=== PATIENT | male | born 1940 | race African-American/Black ===

== ENCOUNTER 2016-07-20 16:06 | Emergency (ER) | payer MEDICARE, OTHER ==
[~2016-07-20] VITALS: Ht 182.9 cm; Wt 76.2 kg
[~2016-07-20 16:06] MED LIST: AMLODIPINE BESY10 MG ORAL; ASPIR 8181 MG ORAL; ATORVASTATIN CA40 MG ORAL; HYDRALAZINE HC100 MG ORAL; KEFLEX500 MG ORAL; LEVAQUIN500 MG ORAL; LYRICA25 MG ORAL; MIRTAZAPINE15 M3 ORAL; NEPHROVITE1 TAB ORAL; NORCO 5-325 TA1 EACH ORAL; NORVASC10 MG ORAL; RENAGEL400 MG ORAL; RENVELA800 MG ORAL; rena vite PO
[2016-07-20 16:23] VITALS: BP 152/81
[2016-07-20] MEDS ORDERED: Tylenol #3 tab (300mg/30mg) ORAL ONE (16:30)
[2016-07-20] MEDS ORDERED: ACETAMINOPHEN-1 EAC1 ORAL (17:21)
[2016-07-20] MEDS ORDERED: IBUPROFEN600 MG ORAL (17:21)
[2016-07-20 17:26] VITALS: BP 146/75
--- NOTE | 2016-07-20 19:20 | Emergency Room Report ---
History of Present Illness General Chief Complaint: Upper Extremity Injury Present Illness HPI The patient is a 76-year-old male presenting for right chest pain after he slipped in the bathroom and struck the sink with his chest. The pain is described as an 8/10 dull ache to this area and does not radiate. Pain is worse with touch and deep inspiration. The patient denies any prior injury to this area. The patient has not tried any medications yet. The patient denies other symptoms such as shortness of breath, cough, hemoptysis Allergies: Coded Allergies: No Known Allergies (Verified Allergy, Unknown, 01/24/10) Patient History Past Medical History: see triage record Pertinent Family History: none Reviewed Nursing Documentation: PMH: Agreed, PSxH: Agreed Nursing Documentation-PMH Hx Cardiac Problems: Yes Hx Hypertension: Yes Hx Diabetes: Yes - type 2, Hx Cancer: No Hx Gastrointestinal Problems: Yes Hx Dialysis: Yes - wednesday, , wednesday, ESRD Hx Neurological Problems: No Hx Cerebrovascular Accident: No Hx Seizures: No Review of Systems All Other Systems: negative except mentioned in HPI Physical Exam Vital Signs Date Time Temp Pulse Resp B/P Pulse Ox O2 Delivery O2 Flow Rate FiO2 07/20/16 16:16 97.9 64 20 152/81 100 Room Air Sp02 EP Interpretation: reviewed, normal General Appearance: no apparent distress, alert, GCS 15, non-toxic Head: normocephalic, atraumatic Eyes: bilateral eye PERRL, bilateral eye normal inspection ENT: hearing grossly normal, normal pharynx, no angioedema, normal voice Neck: full range of motion, supple/symm/no masses Respiratory: lungs clear, normal breath sounds, no respiratory distress, no accessory muscle use, no wheezing, speaking full sentences, chest symmetrical Cardiovascular #1: regular rate, rhythm, no edema Musculoskeletal: back normal, gait/station normal, normal range of motion, tender - TTP over the R mid lateral chest Neurologic: alert, oriented x3, responsive, motor strength/tone normal, sensory intact, normal gait, speech normal Psychiatric: judgement/insight normal, memory normal, mood/affect normal, no suicidal/homicidal ideation Skin: normal color, no rash, warm/dry, well hydrated Lymphatic: no adenopathy Medical Decision Making PA Attestation Dr. Mak is my supervising physician. Patient management was discussed with my supervising physician Diagnostic Impression: Primary Impression: Contusion of rib on right side ER Course The patient is a 76-year-old male presenting for right chest pain after falling onto it Ddx considered include but not limited to sprain/strain, fracture, contusion PE: No tachypnea or tachycardia. NAD R chest: TTP over the thoracic ribs mid-axillary line. No deformity. No ecchymosis. No resp distress. Chest is symmetrical. RRR. Lungs CTA bilat Chest CT: No bony deformity. No pneumothorax. There is an effusion and 6mm nodule of the RLL. The patient is informed of these findings and will FU with PMD.The pt will call back in order to obtain the formal radiology report. Pt given prescription for tylenol #3. CT/MRI/US Diagnostic Results CT/MRI/US Diagnostic Results : Imaging Test Ordered: CT chest Impression No bony deformity. No pneumothorax. There is an effusion and 6mm nodule of the RLL. Last Vital Signs Date Time Temp Pulse Resp B/P Pulse Ox O2 Delivery O2 Flow Rate FiO2 07/20/16 17:27 97.8 07/20/16 17:26 61 20 146/75 100 Room Air Status: improved Disposition: HOME, SELF-CARE Condition: Improved Scripts Ibuprofen* (MOTRIN*) 600 Mg Tablet 600 MG ORAL Q8H Y for For Pain, #30 TAB 0 Refills Prov: GRACIE TAYLOR 07/20/16 Acetaminophen With Codeine (T#3) (TYLENOL #3 TAB*) Y Tab 1 TAB ORAL Q6HR Y for For Pain, #10 TAB Prov: GRACIE TAYLOR 07/20/16 Referrals: JUNIOR ECHOLS (PCP) Patient Instructions: Rib Contusion Additional Instructions: I discussed my findings with the patient. All questions and concerns have been answered. Treatment and medication compliance have been addressed. I advised the patient that they need to follow up with PMD in 3-5 days. Return to ED if symptoms worsen, new symptoms arise, or if needed for any reason. Patient verbalized understanding of discharge instructions. The patient was informed that there was an incidental finding of a 6mm nodule of the right lower lung. The patient will call back for final report and needs to see his primary physician. GRACIE TAYLOR Jul 20, 2016 19:20
--- NOTE | 2016-07-21 15:23 | Diagnostic Imaging Report ---
Indications: Right-sided chest trauma and pain Technique: Continuous helical CT imaging of the thorax and upper abdomen was performed with automatic exposure control on a Siemens sensation [address] scanner. Axial images were reconstructed at 5 mm slice thickness and interval. Coronal images were reconstructed at 5 mm slice thickness. No IV contrast was administered secondary to requesting physician's order, despite no contraindications listed. CTDI volume(s): 17 mGy Total DLP: 624 mGy-cm Findings: Comparison: None 8mm mildly irregular soft tissue nodule superior segment right lower lobe (5/27). I millimeters calcified nodule anterior segment left upper lobe (5-11). Finally noncalcified nodule anterior segment left upper lobe (5-12). 3 mm nodule not obviously calcified anterior segment left upper lobe (5-23). Circumscribed cystic lesion is scattered throughout both lungs, most prominent in the bases where surrounded by parenchymal consolidation and volume loss. No obvious pleural abnormality. Heart enlarged. Pericardial effusion up to 15 mm diameter. Prominent arterial mural calcifications including coronary artery involvement. Vascular patency indeterminate. Thoracic aorta nonaneurysmal. No obvious mediastinal or hilar enlarged lymph nodes, other abnormal mass or fluid collection. 2 cm calcified nodule adjacent to posterior margin of left thyroid lobe. Stent in left axillary vein, incompletely imaged. Mild diffuse chest wall soft tissue edema. No fracture identified. Disc marginal osteophytes scattered throughout thoracic spine. 2.5 cm circumscribed low-attenuation mass right adrenal gland. Bilateral kidneys are atrophic with multiple cortical circumscribed low-attenuation masses. 2 small high attenuation masses emanating from left renal cortex. Multiple small circumscribed low attenuation foci in spleen not further characterizable. IMPRESSION: No evidence of acute injury Superior segment right lower lobe lung nodule--inflammatory versus neoplastic. Followup thoracic CT scan recommended in 6 months if patient at low risk for neoplasm, 3 months if high risk. Left upper lobe nodules likely of granulomatous. Pulmonary bibasal subsegmental atelectasis versus scarring Scattered bilateral emphysematous/bullous changes Cardiomegaly Pericardial effusion, nonspecific Arteriosclerosis Calcified nodule adjacent to left thyroid lobe most likely thyroid in origin Left axillary vein stent most likely relates to dialysis access, patency indeterminate Mild anasarca Right adrenal mass most likely adenoma. Other etiologies not excludable. MRI recommended for further evaluation. Bilateral renal cortical atrophy and multiple cortical masses most likely cysts, high attenuation lesions in left kidney most likely proteinaceous cysts.. One or more solid masses/neoplasm not excludable ultrasound correlation recommended. Degenerative spondylosis. This correlates with Dr. Hill's preliminary report.
== END 2016-07-20 17:32 | disposition home or self-care (01) ==
LOC: EMR 17:21
DX: S20.211A Contusion of right front wall of thorax, initial encounter (principal); I12.0 Hypertensive chronic kidney disease with stage 5 chronic kidney disease or end stage renal disease; E11.22 Type 2 diabetes mellitus with diabetic chronic kidney disease; N18.6 End stage renal disease; Z99.2 Dependence on renal dialysis; R91.1 Solitary pulmonary nodule; I51.7 Cardiomegaly; I31.3 Pericardial effusion (noninflammatory); I70.90 Unspecified atherosclerosis; E04.1 Nontoxic single thyroid nodule; R60.1 Generalized edema; M47.9 Spondylosis, unspecified; W01.0XXA Fall on same level from slipping, tripping and stumbling without subsequent striking against object, initial encounter; Y93.9 Activity, unspecified; Y92.002 Bathroom of unspecified non-institutional (private) residence as the place of occurrence of the external cause
CPT/HCPCS: 71250; 99284

== ENCOUNTER 2019-01-18 06:54 | Emergency (ER) | payer MEDICARE, OTHER ==
[~2019-01-18] VITALS: Ht 182.9 cm; Wt 59.0 kg
[~2019-01-18 06:54] MED LIST changes: +ACETAMINOPHEN-1 EAC1 ORAL; +IBUPROFEN600 MG ORAL
--- NOTE | 2019-01-18 07:06 | NUR ---
ED Nurse Note: Patient walked into ED from home with his brother, c/o itchiness on and red bumps on bilateral arms for 1 week. patient has HD shunt on the left upper arm. patient reports his HD schedule is tthss. patient is alert awake x4 ambulatory steady gait, breathing unlabored and even, patient placed in a hospital gown.
[2019-01-18] MEDS ORDERED: DIPHENHYDRAMINE25 M1 ORAL (07:34)
[2019-01-18] MEDS ORDERED: CEPHALEXIN500 MG ORAL (07:34)
[2019-01-18 07:43] VITALS: BP_SYST 148; BP_SYST 152; BP_DIAS 81; BP_DIAS 82
--- NOTE | 2019-01-18 07:44 | NUR ---
ER DISCHARGE NOTE: Patient is cleared to be discharged per ERMD DR SUÁREZ, pt is aox4, on room air, with stable vital signs. pt was given dc and prescription instructions, pt was able to verbalize understanding, pt id band removed without complications. pt is able to ambulate with steady gait. pt took all belongings.
--- NOTE | 2019-01-18 08:18 | Emergency Room Report ---
History of Present Illness General Chief Complaint: Skin Rash/Abscess Source: Patient Present Illness HPI 78 yo M presents to ED c/o rash. noted rash to arms initially and is now on his back. started 2 weeks ago. itchy. denies pain. states that his PMD prescribed him some cream but states it didn't help. denies fevers or chills. denies sick contacts. h/o ESRD on dialysis wednesday. states he is compliant with his dialysis. no other aggravating or relieving factors. denies any other associated symptoms. Allergies: Coded Allergies: No Known Allergies (Verified Allergy, Unknown, 01/24/10) Patient History Past Medical History: DM, HTN, renal disease, dialysis Pertinent Family History: none Social History: Denies: smoking, alcohol use, drug use Immunizations: UTD Reviewed Nursing Documentation: PMH: Agreed; PSxH: Agreed Nursing Documentation-PMH Past Medical History: No History, Except For Hx Cardiac Problems: Yes Hx Hypertension: Yes Hx Diabetes: Yes - type 2, Hx Cancer: No Hx Gastrointestinal Problems: Yes Hx Dialysis: Yes - wednesday, , wednesday, ESRD Hx Neurological Problems: No Hx Cerebrovascular Accident: No Hx Seizures: No Review of Systems All Other Systems: negative except mentioned in HPI Physical Exam Vital Signs Date Time Temp Pulse Resp B/P (MAP) Pulse Ox O2 Delivery O2 Flow Rate FiO2 01/18/19 07:00 98.1 70 14 152/81 (104) 96 Room Air Sp02 EP Interpretation: reviewed, normal General Appearance: no apparent distress, alert, GCS 15, non-toxic, thin Head: normocephalic, atraumatic Eyes: bilateral eye normal inspection, bilateral eye PERRL ENT: normal ENT inspection Neck: normal inspection Respiratory: chest non-tender, lungs clear, normal breath sounds, speaking full sentences Cardiovascular #1: regular rate, rhythm, no edema Gastrointestinal: normal bowel sounds, non tender, soft, non-distended, no guarding, no rebound Rectal: deferred Genitourinary: no CVA tenderness Musculoskeletal: normal inspection Neurologic: alert, oriented x3, responsive, motor strength/tone normal, sensory intact, speech normal Psychiatric: normal inspection Skin: other - erythematous macules on back. non erythematous base. Lymphatic: normal inspection Medical Decision Making Diagnostic Impression: Primary Impression: Rash and other nonspecific skin eruption Additional Impression: ESRD (end stage renal disease) ER Course Hospital Course 78 yo M presents to ED c/o rash Differential diagnoses include: Cellulitis, dermatitis, insect bite, abscess Clinical course Patient placed on stretcher. After initial history, physical exam reveals an elderly male in no acute distress. On exam there are multiple erythematous macules on the upper back. nonerythematous base Patient showed me his prescription for triamcinolone. I explained that we will treat for possible insect bites. I will prescribe Benadryl and Keflex. Will provide renal dosing for Keflex as patient is on dialysis. Safe for discharge close outpatient follow-up. States he has a PMD Diagnosis - rash, ESRD stable and discharged to home with prescription for keflex, benedryl. Instructed to followup with PMD. Instructed return to ED if symptoms recur or worsen Last Vital Signs Date Time Temp Pulse Resp B/P (MAP) Pulse Ox O2 Delivery O2 Flow Rate FiO2 01/18/19 07:43 98.1 81 14 148/82 96 Room Air Status: improved Disposition: HOME, SELF-CARE Condition: Stable Scripts Cephalexin* (KEFLEX*) 500 Mg Capsule 500 MG ORAL DAILY for 7 Days, CAP Prov: Alex Fermin MD 01/18/19 Diphenhydramine Hcl* (DIPHENHYDRAMINE HCL*) 25 Mg Capsule 25 MG ORAL Q6H PRN for Itching, #30 CAP 0 Refills Prov: Alex Fermin MD 01/18/19 Referrals: Catarina Kirby MD (PCP) Patient Instructions: Alex Jacques MD Jan 18, 2019 08:18
== END 2019-01-18 07:43 | disposition home or self-care (01) ==
LOC: EMR 07:25
DX: R21 Rash and other nonspecific skin eruption (principal); E11.22 Type 2 diabetes mellitus with diabetic chronic kidney disease; I12.0 Hypertensive chronic kidney disease with stage 5 chronic kidney disease or end stage renal disease; N18.6 End stage renal disease; Z99.2 Dependence on renal dialysis
CPT/HCPCS: 99282

== ENCOUNTER → 2019-05-01 | Emergency (ER) | payer MEDICARE, OTHER ==
[~2019-05-01] VITALS: Ht 182.9 cm; Wt 71.2 kg
[~2019-05-01] MED LIST changes: +CEPHALEXIN500 MG ORAL; +DIPHENHYDRAMINE25 M1 ORAL; +Morphine Sulfate 4mg/ml Inj (IV USE ONLY) IVP ONE; +Morphine Sulfate 4mg/ml Inj (IV USE ONLY) ONE; +Omnipaque-300 100ml vial INJ PRN
--- NOTE | 2019-05-01 14:50 | NUR ---
ED Nurse Note: Patient walked into ED from home with a cane c/o right lower abdominal pain that has been getting worse for 3 months. patient is alert awake x4 ambulatory with cane, breathing unlabored and even, speaking in full sentences, patient on a hospital gown and on a campus monitor. brother at bedside.
[2019-05-01 15:28] VITALS: BP 129/82
[2019-05-01 15:40] LABS: HEMATOCRIT 33.7 % (42.0-52.0); HEMOGLOBIN 10.6 G/DL (14.2-18.0); MEAN CORPUSCULAR VOLUME 94 FL (80-99); PLATELET COUNT 92 K/UL (150-450); RED BLOOD COUNT 3.59 M/UL (4.70-6.10); RED CELL DISTRIBUTION WIDTH 13.3 % (11.6-14.8); WHITE BLOOD COUNT 5.1 K/UL (4.8-10.8)
[2019-05-01 15:57] LABS: ANION GAP 9 mmol/L (5-15); BLOOD UREA NITROGEN 44 mg/dL (7-18); CALCIUM 9.1 MG/DL (8.5-10.1); CARBON DIOXIDE 25 MMOL/L (21-32); CHLORIDE 106 MMOL/L (98-107); CREATININE 8.1 MG/DL (0.55-1.30); POTASSIUM 4.9 MMOL/L (3.5-5.1); SODIUM 140 MMOL/L (136-145)
[2019-05-01 16:02] LABS: ALANINE AMINOTRANSFERASE 7 U/L (12-78); ALBUMIN 2.9 G/DL (3.4-5.0); ALBUMIN/GLOBULIN RATIO 0.9 (1.0-2.7); ALKALINE PHOSPHATASE 71 U/L (46-116); ASPARTATE AMINO TRANSFERASE 15 U/L (15-37); BILIRUBIN,TOTAL 0.3 MG/DL (0.2-1.0)
--- NOTE | 2019-05-01 17:11 | NUR ---
ED Nurse Note: patient came back from CT scan in stable condition.
[2019-05-01 18:30] VITALS: BP 127/92
[2019-05-01 18:45] VITALS: BP 127/92
--- NOTE | 2019-05-01 18:45 | NUR ---
ER DISCHARGE NOTE: Patient is cleared to be discharged per ERMD DR SUÁREZ, pt is aox4, on room air, with stable vital signs. pt was given dc and prescription instructions, pt was able to verbalize understanding, pt id band and iv site removed without complications. pt is able to ambulate with steady gait. pt took all belongings.
--- NOTE | 2019-05-01 22:51 | Emergency Room Report ---
History of Present Illness General Chief Complaint: Abdominal Pain Source: Patient Present Illness HPI 79-year-old male presents ED for evaluation. Complaining of abdominal pain. Has been having pain for the last 3 months but worse in the last few days. Notes pain to the left side of his abdomen. Also notes swelling there. Pain is a 7 out of 10, dull, nonradiating. Denies nausea or vomiting. Denies chest pain. History of end-stage renal disease. Gets dialysis Wednesday. No other aggravating relieving factors. Denies any other associated symptoms Allergies: Coded Allergies: No Known Allergies (Verified Allergy, Unknown, 01/24/10) Patient History Past Medical History: DM, HTN, renal disease, dialysis Past Surgical History: other - hernia Pertinent Family History: none Social History: Denies: smoking, alcohol use, drug use Immunizations: UTD Reviewed Nursing Documentation: PMH: Agreed; PSxH: Agreed Nursing Documentation-PMH Hx Cardiac Problems: Yes - HYPERLIPIDEMIA Hx Hypertension: Yes Hx Diabetes: Yes - type 2, Hx Cancer: No Hx Gastrointestinal Problems: Yes Hx Dialysis: Yes - wednesday, , wednesday, ESRD Hx Neurological Problems: No Hx Cerebrovascular Accident: No Hx Seizures: No Review of Systems All Other Systems: negative except mentioned in HPI Physical Exam Vital Signs Date Time Temp Pulse Resp B/P (MAP) Pulse Ox O2 Delivery O2 Flow Rate FiO2 05/01/19 14:45 97.9 58 18 132/80 (97) 96 Room Air Sp02 EP Interpretation: reviewed, normal General Appearance: no apparent distress, alert, GCS 15, non-toxic Head: normocephalic, atraumatic Eyes: bilateral eye normal inspection, bilateral eye PERRL ENT: hearing grossly normal, normal pharynx, no angioedema, normal voice Neck: full range of motion, supple/symm/no masses Respiratory: chest non-tender, lungs clear, normal breath sounds, speaking full sentences Cardiovascular #1: regular rate, rhythm, no edema Cardiovascular #2: 2+ carotid (R), 2+ carotid (L), 2+ radial (R), 2+ radial (L) , 2+ dorsalis pedis (R), 2+ dorsalis pedis (L) Gastrointestinal: normal bowel sounds, soft, no guarding, no rebound, tenderness Rectal: deferred Genitourinary: normal inspection, no CVA tenderness Musculoskeletal: back normal, normal range of motion, gait/station normal, non- tender Neurologic: alert, motor strength/tone normal, oriented x3, sensory intact, responsive, speech normal Psychiatric: judgement/insight normal, memory normal, mood/affect normal, no suicidal/homicidal ideation Reflexes: 3+ bicep (R), 3+ bicep (L), 3+ tricep (R), 3+ tricep (L), 3+ knee (R) , 3+ knee (L) Skin: other - healing abscess to pilonidal area. no active erythema/induration Lymphatic: no adenopathy Medical Decision Making Diagnostic Impression: Primary Impression: Abscess Additional Impressions: ESRD (end stage renal disease) on dialysis Abdominal pain Qualified Codes: R10.9 - Unspecified abdominal pain Lung nodule ER Course Hospital Course 79-year-old M presents to ED with abdominal pain, distension Differential diagnosis includes-appendicitis, cholecystitis, small bowel obstruction, gastritis, Clinical course Patient placed on stretcher. After initial history and physical I ordered labs , IV fluids, pain medications and CT scan Labs - no leukocytosis, BUN/Cr elevated, CT scan shows lung nodule. renal cysts. no evidence of hernia, but appears to have weakened abdominal wall on left There is a healing abscess to the pilonidal area. No active drainage at this time. No erythema or induration. I discussed findings with patient. Discussed lung nodule findings. Concern for cancer. Recommend close follow-up with PMD. Patient received IV contrast but is scheduled to have dialysis tomorrow. Safe for discharge for close outpatient follow-up. Will discharge with antibiotics renal dosing. states he has a PMD I feel this is a highly complex case requiring extensive working including EKG/ Rhythm strip, Xray/CT/US, Blood/urine lab work, repeat exams while in ED, and administration of strong opiates/narcotics for pain control, admission to hospital or close patient follow up. Diagnosis - abscess, ESRD on dialysis, abdominal pain, lung nodule Stable and discharged to home with rx tylenol #3, keflex. Followup with PMD. Return to ED if symptoms recur or worsen Labs Test 05/01/19 15:24 White Blood Count 5.1 K/UL (4.8-10.8) Red Blood Count 3.59 M/UL (4.70-6.10) Hemoglobin 10.6 G/DL (14.2-18.0) Hematocrit 33.7 % (42.0-52.0) Mean Corpuscular Volume 94 FL (80-99) Mean Corpuscular Hemoglobin 29.5 PG (27.0-31.0) Mean Corpuscular Hemoglobin Concent 31.4 G/DL (32.0-36.0) Red Cell Distribution Width 13.3 % (11.6-14.8) Platelet Count 92 K/UL (150-450) Mean Platelet Volume 6.9 FL (6.5-10.1) Neutrophils (%) (Auto) % (45.0-75.0) Lymphocytes (%) (Auto) % (20.0-45.0) Monocytes (%) (Auto) % (1.0-10.0) Eosinophils (%) (Auto) % (0.0-3.0) Basophils (%) (Auto) % (0.0-2.0) Differential Total Cells Counted 100 Neutrophils % (Manual) 74 % (45-75) Lymphocytes % (Manual) 17 % (20-45) Monocytes % (Manual) 9 % (1-10) Eosinophils % (Manual) 0 % (0-3) Basophils % (Manual) 0 % (0-2) Band Neutrophils 0 % (0-8) Platelet Estimate Decreased Platelet Morphology Normal Red Blood Cell Morphology Normal Sodium Level 140 MMOL/L (136-145) Potassium Level 4.9 MMOL/L (3.5-5.1) Chloride Level 106 MMOL/L (98-107) Carbon Dioxide Level 25 MMOL/L (21-32) Anion Gap 9 mmol/L (5-15) Blood Urea Nitrogen 44 mg/dL (7-18) Creatinine 8.1 MG/DL (0.55-1.30) Estimat Glomerular Filtration Rate mL/min (>60) Glucose Level 219 MG/DL (74-106) Calcium Level 9.1 MG/DL (8.5-10.1) Total Bilirubin 0.3 MG/DL (0.2-1.0) Aspartate Amino Transf (AST/SGOT) 15 U/L (15-37) Alanine Aminotransferase (ALT/SGPT) 7 U/L (12-78) Alkaline Phosphatase 71 U/L (46-116) Total Protein 6.2 G/DL (6.4-8.2) Albumin 2.9 G/DL (3.4-5.0) Globulin 3.3 g/dL Albumin/Globulin Ratio 0.9 (1.0-2.7) Lipase 199 U/L (73-393) CT/MRI/US Diagnostic Results CT/MRI/US Diagnostic Results : Imaging Test Ordered: CT A/P Impression Impression: Limited assessment of the GI tract, due to lack of enteric contrast administration. Atrophic kidneys. 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 While possibly representing complicated/proteinaceous cysts, these could also represent neoplastic lesions. Recommend follow-up sonography for further evaluation 12 mm right basilar lung nodule. Recommend [address] follow-up versus PET CT Fluid-filled nondistended small bowel loops. Nonspecific, could indicate mild enteritis changes Splenic cysts Prostatomegaly Cardiomegaly Pericardial effusion Edema of the subcutaneous fat, mild Basilar pulmonary bullous and fibrotic changes Coronary artery calcifications Last Vital Signs Date Time Temp Pulse Resp B/P (MAP) Pulse Ox O2 Delivery O2 Flow Rate FiO2 05/01/19 18:30 97.9 65 19 127/92 99 Room Air Status: improved Disposition: HOME, SELF-CARE Condition: Stable Scripts Acetaminophen With Codeine (T#3) (TYLENOL #3 TAB*) Y Tab 1 TAB ORAL Q8H PRN for For Pain, #12 TAB Prov: Alex Fermin MD 05/01/19 Cephalexin* (KEFLEX*) 500 Mg Capsule 500 MG ORAL EVERY 6 HOURS for 7 Days, CAP Prov: Alex Fermin MD 05/01/19 Referrals: Christal Roche. [facility] Patient Instructions: Hernia, Adult, Unfi-in-Azhm Alex Fermin MD May 01, 2019 22:51
--- NOTE | 2019-05-02 08:00 | Diagnostic Imaging Report ---
Clinical Indication: Abdominal pain x1 day Technique: No oral contrast utilized, per emergency room physician request IV administration nonionic contrast. Venous phase spiral acquisition obtained through the abdomen and pelvis. Multiplanar reconstructions were generated. Total dose length product 1039 mGycm. CTDIvol(s) 17 mGy. Dose reduction achieved using automated exposure control Comparison: none Findings: Lack of enteric contrast limits assessment of the GI tract. The rectum is mildly distended with gas. The appendix is normal. There is no evidence of colonic diverticulosis or diverticulitis. Small bowel loops are diffusely fluid-filled but nondistended. Distal esophagus, stomach, duodenum are unremarkable. The liver demonstrates numerous subcentimeter low-attenuation lesions which are too small to characterize. The gallbladder is nondistended. No biliary ductal dilatation. The pancreas is unremarkable. Spleen demonstrates numerous cysts. It also demonstrates an indeterminate attenuation 3 cm lesion which is most likely a complex cyst. The kidneys are atrophic, containing innumerable cysts, including a parapelvic cysts bilaterally. The right kidney demonstrates an exophytic soft tissue attenuation lesion which measures 3 cm in diameter. This is slightly heterogeneous in attenuation. The left kidney demonstrates a 2 cm soft tissue attenuation lesion coming off of the interpolar region. Both kidneys demonstrate calyceal calculi. No ureteral calculi, hydronephrosis, or hydroureter. The bladder demonstrates wall thickening. No pelvic mass or adenopathy. The prostate is enlarged. There is diffuse mild edema of the subcutaneous fat. The included lung bases demonstrate numerous bullae as well as areas of honeycombing indicative of chronic fibrosis. The right lung base demonstrates a noncalcified 12 mm nodule. The heart is enlarged. There is a pericardial effusion which measures up to 19 mm thick. There are coronary artery calcifications. The bones demonstrate degenerative spondylosis changes. Impression: Limited assessment of the GI tract, due to lack of enteric contrast administration. Atrophic kidneys. 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 While possibly representing complicated/proteinaceous cysts, these could also represent neoplastic lesions. Recommend follow-up sonography for further evaluation 12 mm right basilar lung nodule. Recommend [address] follow-up versus PET CT Fluid-filled nondistended small bowel loops. Nonspecific, could indicate mild enteritis changes Splenic cysts Prostatomegaly Cardiomegaly Pericardial effusion Edema of the subcutaneous fat, mild Basilar pulmonary bullous and fibrotic changes Coronary artery calcifications Other findings as noted, including degenerative spondylosis changes, nonobstructive intrarenal calculi, probable liver and splenic cysts The CT scanner at [facility] is accredited by the [employer] and the scans are performed using protocols designed to limit radiation exposure to as low as reasonably achievable to attain images of sufficient resolution adequate for diagnostic evaluation.
== END | disposition home or self-care (01) ==
LOC: EMR 18:44
DX: R10.9 Unspecified abdominal pain (principal); L02.818 Cutaneous abscess of other sites; R91.1 Solitary pulmonary nodule; E11.22 Type 2 diabetes mellitus with diabetic chronic kidney disease; I12.0 Hypertensive chronic kidney disease with stage 5 chronic kidney disease or end stage renal disease; N18.6 End stage renal disease; Z99.2 Dependence on renal dialysis; E78.5 Hyperlipidemia, unspecified; I31.3 Pericardial effusion (noninflammatory); I51.7 Cardiomegaly; N40.0 Benign prostatic hyperplasia without lower urinary tract symptoms; D73.4 Cyst of spleen
CPT/HCPCS: 36415; 74177; 80053; 83690; 85007; 85025; 96374; 99284; J2270; Q9967